=== PATIENT | female | born 1950 ===

== ENCOUNTER 2025-03-31 13:40 | Outpatient (CLI) | payer MEDICARE ==
[2025-03-31 14:50] LABS: #Basophils 0.04 10x3/uL (0.0-0.2); #Eosinophils 0.12 10x3/uL (0.0-0.7); #Monocytes 0.51 10x3/uL (0.11-0.59); #Neutrophils 5.31 10x3/uL (1.40-6.50); %Basophils 0.6 % (0.0-1.0); %Eosinophils 1.8 % (0.0-10.0); %Lymphocytes 11.1 % (21.0-51.0); %Monocytes 7.6 % (0.0-10.0); %Neutrophils 78.6 % (42.0-75.0); Hematocrit 35.6 % (36.0-47.0); Hemoglobin 11.2 g/dL (12.0-16.0); Mean Corpuscular Hemoglobin 32.7 pg (27.0-31.0); Mean Corpuscular Volume 104.1 fL (78.0-98.0); Platelet Count 147 10x3/uL (130-400); Red Blood Cell (RBC) Count 3.42 mill/uL (4.20-5.40); White Blood Cell (WBC) Count 6.75 10x3/uL (4.8-10.8)
[2025-03-31 15:05] LABS: INR-International Normal Ratio 1.5; PTT 38.0 sec (22.9-36.1); Prothrombin Time 17.8 sec (12.0-14.7)
[2025-03-31 15:10] LABS: Anion Gap 15 mmol/L (10-20); BUN (Urea Nitrogen) 21 mg/dL (9.8-20.1); Calc. Creatinine Clearance 0 mL/min (70-130); Calcium 9.1 mg/dL (7.8-10.44); Carbon Dioxide 25 mmol/L (23-31); Chloride 98 mmol/L (98-107); Glucose 238 mg/dL (83-110); Potassium 4.2 mmol/L (3.5-5.1); Sodium 134 mmol/L (136-145)
== END 2025-03-31 13:41 | disposition home or self-care (01) ==
LOC: LABBT 13:40
PROVIDERS: ATTEND Surgery
DX: Z01.818 Encounter for other preprocedural examination (principal); N18.6 End stage renal disease; E11.65 Type 2 diabetes mellitus with hyperglycemia
CPT/HCPCS: 36415; 71046; 80053; 80061; 83036; 84443; 85025; 85610; 85730; 93005; 93010

== ENCOUNTER 2025-04-07 05:33 | Day surgery (SDC) | payer MEDICARE ==
[2025-03-31 13:55] VITALS: BMI 41.0
[2025-04-07] MEDS ORDERED: Lidocaine 1% PF 5 ML VIAL ONE (06:37)
[2025-04-07] MEDS ORDERED: Ondansetron PF 4 MG/2 ML Vial ONE (06:37)
[2025-04-07] MEDS ORDERED: fentaNYL PF 100 MCG/2 ML SYRINGE ONE ×2 (06:38→08:05)
[2025-04-07 06:44] LABS: Potassium 4.0 mmol/L (3.5-5.1)
[2025-04-07] MEDS ORDERED: Heparin 5,000 UNITS/ML VIAL ONE (06:55)
[2025-04-07] MEDS ORDERED: Lidocaine 1% (PF) 30 ML VIAL ONE (06:55)
[2025-04-07] MEDS ORDERED: Vancomycin 1 GM/200 ML (FROZEN) BAG ONE (07:17)
[2025-04-07] MEDS ORDERED: PROPOFOL 200 MG/20 ML VIAL ONE (07:33)
[2025-04-07] MEDS ORDERED: PHENYLEPHRINE-NS 100 MCG/ML 10 ML SYRINGE ONE (07:58)
[2025-04-07] MEDS ORDERED: Heparin 10,000 UNITS/ 10 ML VIAL ONE (08:14)
[2025-04-07] MEDS ORDERED: HYDROcodone/Acetaminophen 5/325 mg Tablet ONE (10:16)
== END 2025-04-07 11:15 | disposition home or self-care (01) ==
LOC: SDC 05:33
PROVIDERS: ATTEND Surgery
PROC: 03180ZD Bypass Left Brachial Artery to Upper Arm Vein, Open Approach (ICD-10-PCS; principal; 2025-04-07)
DX: I12.0 Hypertensive chronic kidney disease with stage 5 chronic kidney disease or end stage renal disease (principal); N18.6 End stage renal disease; E11.22 Type 2 diabetes mellitus with diabetic chronic kidney disease; E78.5 Hyperlipidemia, unspecified; Z90.49 Acquired absence of other specified parts of digestive tract; Z90.710 Acquired absence of both cervix and uterus; Z88.1 Allergy status to other antibiotic agents; Z88.2 Allergy status to sulfonamides; Z91.013 Allergy to seafood; Z95.1 Presence of aortocoronary bypass graft; Z99.2 Dependence on renal dialysis
CPT/HCPCS: 36830; 82962; 84132; A6258; C1713; J1644 ×2; J2003; J2250; J2405; J2704; J2720; J3010; J3373 ×2; L8670; 36415; 36416